=== PATIENT | female | born 1970 | race African-American/Black ===

== ENCOUNTER 2020-09-03 09:58 | Inpatient (IN) | payer OTHER ==
--- NOTE | 2020-09-03 10:03 | BHS.RME ---
Substance Use & Tx History - Substance Use History Alcohol Substance amount: 2 pints rum or lizette Frequency of use: Daily Substance route: Oral Date of Last Use: 09/02/20 (started age 49) Nicotine Substance amount: never smoked Physical/Psych/Mental Status - Behavior General Behavior: Increased activity (restlessness, agitation) Eye Contact: Normal - Cooperativeness Cooperativeness: Cooperative - Thinking Thought Processes: Tight, Logical, Goal Directed - Physical Health Problems Is patient presently having any pain?: No Does patient presently have any injuries (include location): No Does patient currently have a fever: No Is patient : No CIWA Nausea/Vomitin Muscle Tremors: 6 Anxiety: 5 Agitation: 5 Paroxysmal Sweats: 4-Forehead w/Sweat Beads Orientation: 1-Uncertain about Date Tacttile Disturbances: 0-None Auditory Disturbances: 0-None Visual Disturbances: 0-None Headache: 2-Mild CIWA-Ar Total Score: 25
[2020-09-03 10:09] VITALS: BMI 39.4
[2020-09-03] MEDS ORDERED: chlordiazePOXIDE HCL 25 MG CAPSULE ONE (10:27)
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
[2020-09-03] MEDS ORDERED: MENTHOL/PHENOL 1 EACH UD MM PRN (10:35)
[2020-09-03] MEDS ORDERED: BISMUTH SUBSALICYLATE 262 MG/15 ML BTL PO PRN (10:35)
[2020-09-03] MEDS ORDERED: MAGNESIUM HYDROX 2400MG/30ML ORAL SUSPENSION 30 ML CUP PO PRN (10:35)
[2020-09-03] MEDS ORDERED: chlordiazePOXIDE HCL 25 MG CAPSULE PO PRN (10:35)
[2020-09-03] MEDS ORDERED: ONDANSETRON *ODT* 4 MG TABLET SL PRN (10:35)
[2020-09-03] MEDS ORDERED: MAG HYDROX/AL HYDROX/SIMETH 30 ML UNIT-DOSE CUP PO PRN (10:35)
[2020-09-03] MEDS ORDERED: ACETAMINOPHEN 325 MG TABLET (FP) PO PRN ×2 (10:35)
[2020-09-03] MEDS ORDERED: IBUPROFEN 400 MG TABLET (FP) PO PRN (10:35)
[2020-09-03] MEDS ORDERED: MAGNESIUM CITRATE 300 ML BOTTLE PO PRN (10:35)
[2020-09-03] MEDS ORDERED: chlordiazePOXIDE HCL 25 MG CAPSULE PO ONE (10:37)
[2020-09-03] MEDS: chlordiazePOXIDE HCL 25 MG CAPSULE PO SCH ×3 (11:22→22:31)
--- NOTE | 2020-09-03 11:51 | EKG ---
Test Reason : Blood Pressure : / mmHG Vent. Rate : 091 BPM Atrial Rate : 091 BPM P-R Int : 134 ms QRS Dur : 090 ms QT Int : 380 ms P-R-T Axes : 029 080 042 degrees QTc Int : 467 ms NORMAL SINUS RHYTHM T WAVE ABNORMALITY, CONSIDER ANTERIOR ISCHEMIA ABNORMAL ECG NO PREVIOUS ECGS AVAILABLE Confirmed by MD Irvin, Lake ([id number]) on 09/03/2020 11:51:31 AM Referred By: Confirmed By:Lake Bryan MD
[2020-09-03] MEDS ORDERED: PNEUMOC 13-VAL CONJ-DIP CRM/PF 0.5 ML DISP.SYRIN IM ONE (12:00)
[2020-09-03] MEDS ORDERED: hydrOXYzine PAMOATE 25 MG CAPSULE (FP) PO SCH (14:00)
[2020-09-03 14:04] LABS: HEMATOCRIT 28.9 % (32.4-45.2); HEMOGLOBIN 9.1 GM/dL (10.7-15.3); MCH 24.6 pg (25.7-33.7); MCHC 31.4 g/dl (32.0-36.0); MEAN CELL VOLUME 78.2 fl (80-96); PLATELET COUNT 162 K/MM3 (134-434); RDW 20.6 % (11.6-15.6); WHITE BLOOD COUNT 4.3 K/mm3 (4.0-10.0)
[2020-09-03 14:11] LABS: ALBUMIN 3.3 g/dl (3.4-5.0); BILIRUBIN,TOTAL 0.7 mg/dL (0.2-1); BLOOD UREA NITROGEN 6.9 mg/dL (7-18); CALCIUM 8.5 mg/dL (8.5-10.1); CREATININE 0.6 mg/dL (0.55-1.3); POTASSIUM 3.1 mmol/L (3.5-5.1); TOT PROT 7.6 g/dl (6.4-8.2)
[2020-09-03] MEDS: THIAMINE HCL 100 MG TABLET (FP) PO SCH (22:31)
[2020-09-03] MEDS: MELATONIN 5 MG TABLETS PO SCH (22:31)
--- NOTE | 2020-09-04 00:36 | PN ---
S Progress Note Note: kdur 40 meq x2 dose for k of 3.1 repeat cmp on 09/06/2020
[2020-09-04] MEDS: chlordiazePOXIDE HCL 25 MG CAPSULE PO SCH ×4 (06:45→22:17)
[2020-09-04] MEDS: POTASSIUM CHLORIDE TABS 20 MEQ TABLET.ER (FP) PO SCH (10:28)
[2020-09-04] MEDS: PRENATAL VITAMINS W/ FOLIC ACID TABLET (FP) PO SCH (10:28)
--- NOTE | 2020-09-04 13:17 | PN ---
[facility] CIWA - CIWA Score Nausea/Vomitin-No Nausea/No Vomiting Muscle Tremors: 3 Anxiety: 2 Agitation: 3 Paroxysmal Sweats: 3 Orientation: 0-Oriented Tacttile Disturbances: 0-None Auditory Disturbances: 0-None Visual Disturbances: 0-None Headache: 0-None Present CIWA-Ar Total Score: 11 S Progress Note (SOAP) Subjective: sweats shakes interrupted sleep Objective: 09/04/20 13:15 Vital Signs Temperature 98.6 F 09/04/20 08:45 Pulse Rate 100 H 09/04/20 08:45 Respiratory Rate 16 09/04/20 08:45 Blood Pressure 116/63 09/04/20 08:45 O2 Sat by Pulse Oximetry (%) 96 09/04/20 08:45 Laboratory Tests 09/03/20 09/03/20 09/03/20 10:30 10:30 10:30 WBC 4.3 RBC 3.70 Hgb 9.1 L Hct 28.9 L MCV 78.2 L MCH 24.6 L MCHC 31.4 L RDW 20.6 H Plt Count 162 MPV 9.0 Sodium 138 Potassium 3.1 L Chloride 104 Carbon Dioxide 25 Anion Gap 9 BUN 6.9 L Creatinine 0.6 Est GFR (CKD-EPI)AfAm 123.18 Est GFR (CKD-EPI)NonAf 106.28 Random Glucose 94 Calcium 8.5 Total Bilirubin 0.7 AST 63 H ALT 55 Alkaline Phosphatase 128 H Creatine Kinase Troponin I Total Protein 7.6 Albumin 3.3 L Syphilis Serology HIV Ag/Ab Combo Qual Negative 09/03/20 09/03/20 10:30 14:00 WBC RBC Hgb Hct MCV MCH MCHC RDW Plt Count MPV Sodium Potassium Chloride Carbon Dioxide Anion Gap BUN Creatinine Est GFR (CKD-EPI)AfAm Est GFR (CKD-EPI)NonAf Random Glucose Calcium Total Bilirubin AST ALT Alkaline Phosphatase Creatine Kinase 107 Troponin I < 0.02 Total Protein Albumin Syphilis Serology Non-reactive HIV Ag/Ab Combo Qual labs noted low potassium; pt is currently ordered and taking potassium supplement aaox3 ambulating no acute distress Assessment: 09/04/20 13:16 withdrawals Plan: continue detox increase fluids
[2020-09-04] MEDS: MELATONIN 5 MG TABLETS PO SCH (22:18)
[2020-09-04] MEDS: THIAMINE HCL 100 MG TABLET (FP) PO SCH (22:18)
[2020-09-04] MEDS: METHOCARBAMOL 500 MG TABLET PO PRN (22:20)
[2020-09-05] MEDS: hydrOXYzine PAMOATE 25 MG CAPSULE (FP) PO PRN ×2 (01:37→18:25)
[2020-09-05] MEDS: chlordiazePOXIDE HCL 25 MG CAPSULE PO SCH ×4 (06:41→22:07)
[2020-09-05] MEDS: POTASSIUM CHLORIDE TABS 20 MEQ TABLET.ER (FP) PO SCH (10:15)
[2020-09-05] MEDS: PRENATAL VITAMINS W/ FOLIC ACID TABLET (FP) PO SCH (10:15)
[2020-09-05] MEDS ORDERED: PNEUMOCOCCAL 23 VACCINE 0.5 ML VIAL IM ONE (12:00)
[2020-09-05] MEDS ORDERED: PNEUMOC 13-VAL CONJ-DIP CRM/PF 0.5 ML DISP.SYRIN IM ONE (12:00)
--- NOTE | 2020-09-05 13:36 | PN ---
S CIWA - CIWA Score Nausea/Vomitin-No Nausea/No Vomiting Muscle Tremors: 3 Anxiety: 2 Agitation: 2 Paroxysmal Sweats: 2 Orientation: 0-Oriented Tacttile Disturbances: 0-None Auditory Disturbances: 0-None Visual Disturbances: 0-None Headache: 0-None Present CIWA-Ar Total Score: 9 BHS Progress Note (SOAP) Subjective: sweats chills body aches Objective: 09/05/20 13:34 Vital Signs Temperature 96.8 F L 09/05/20 12:40 Pulse Rate 86 09/05/20 12:40 Respiratory Rate 18 09/05/20 12:40 Blood Pressure 97/61 09/05/20 12:40 O2 Sat by Pulse Oximetry (%) 95 09/05/20 12:40 Laboratory Tests 09/03/20 09/03/20 09/03/20 10:30 10:30 10:30 WBC 4.3 RBC 3.70 Hgb 9.1 L Hct 28.9 L MCV 78.2 L MCH 24.6 L MCHC 31.4 L RDW 20.6 H Plt Count 162 MPV 9.0 Sodium 138 Potassium 3.1 L Chloride 104 Carbon Dioxide 25 Anion Gap 9 BUN 6.9 L Creatinine 0.6 Est GFR (CKD-EPI)AfAm 123.18 Est GFR (CKD-EPI)NonAf 106.28 Random Glucose 94 Calcium 8.5 Total Bilirubin 0.7 AST 63 H ALT 55 Alkaline Phosphatase 128 H Creatine Kinase Troponin I Total Protein 7.6 Albumin 3.3 L Syphilis Serology COVID-19 (CARMINE) HIV Ag/Ab Combo Qual Negative 09/03/20 09/03/20 09/03/20 10:30 10:30 14:00 WBC RBC Hgb Hct MCV MCH MCHC RDW Plt Count MPV Sodium Potassium Chloride Carbon Dioxide Anion Gap BUN Creatinine Est GFR (CKD-EPI)AfAm Est GFR (CKD-EPI)NonAf Random Glucose Calcium Total Bilirubin AST ALT Alkaline Phosphatase Creatine Kinase 107 Troponin I < 0.02 Total Protein Albumin Syphilis Serology Non-reactive COVID-19 (CARMINE) Not detected HIV Ag/Ab Combo Qual labs noted aaox3 ambulating no acute distress Assessment: 09/05/20 13:35 withdrawals Plan: continue detox increase fluids kdur 40meq x 3 days iron sulfate 325mg tid
[2020-09-05] MEDS ORDERED: POTASSIUM CHLORIDE TABS 20 MEQ TABLET.ER (FP) PO SCH (14:00)
[2020-09-05] MEDS: FERROUS SO4 325 MG TABLET (FP) PO SCH (18:23)
[2020-09-05] MEDS: THIAMINE HCL 100 MG TABLET (FP) PO SCH (22:07)
[2020-09-05] MEDS: MELATONIN 5 MG TABLETS PO SCH (22:07)
[2020-09-06] MEDS ORDERED: chlordiazePOXIDE HCL 10 MG CAPSULE PO PRN
[2020-09-06] MEDS: hydrOXYzine PAMOATE 25 MG CAPSULE (FP) PO PRN (02:01)
[2020-09-06] MEDS: chlordiazePOXIDE HCL 10 MG CAPSULE PO SCH ×4 (06:25→22:24)
[2020-09-06] MEDS: FERROUS SO4 325 MG TABLET (FP) PO SCH ×3 (07:03→17:48)
[2020-09-06 10:02] LABS: ALBUMIN 2.9 g/dl (3.4-5.0); BILIRUBIN,TOTAL 0.4 mg/dL (0.2-1); BLOOD UREA NITROGEN 7.8 mg/dL (7-18); CALCIUM 8.7 mg/dL (8.5-10.1); CREATININE 0.6 mg/dL (0.55-1.3); POTASSIUM 4.1 mmol/L (3.5-5.1)
[2020-09-06] MEDS: PRENATAL VITAMINS W/ FOLIC ACID TABLET (FP) PO SCH (10:38)
[2020-09-06] MEDS: POTASSIUM CHLORIDE TABS 20 MEQ TABLET.ER (FP) PO SCH (10:39)
--- NOTE | 2020-09-06 13:51 | PN ---
S CIWA - CIWA Score Nausea/Vomitin-No Nausea/No Vomiting Muscle Tremors: 3 Anxiety: 2 Agitation: 2 Paroxysmal Sweats: 1-Minimal Palms Moist Orientation: 0-Oriented Tacttile Disturbances: 0-None Auditory Disturbances: 0-None Visual Disturbances: 0-None Headache: 0-None Present CIWA-Ar Total Score: 8 BHS Progress Note (SOAP) Subjective: sleepy sweats interrupted sleep tired Objective: 09/06/20 13:50 Vital Signs Temperature 97.3 F L 09/06/20 08:57 Pulse Rate 88 09/06/20 08:57 Respiratory Rate 18 09/06/20 08:57 Blood Pressure 121/58 L 09/06/20 08:57 O2 Sat by Pulse Oximetry (%) 98 09/06/20 05:51 Laboratory Tests 09/03/20 09/03/20 09/03/20 10:30 10:30 10:30 WBC 4.3 RBC 3.70 Hgb 9.1 L Hct 28.9 L MCV 78.2 L MCH 24.6 L MCHC 31.4 L RDW 20.6 H Plt Count 162 MPV 9.0 Sodium 138 Potassium 3.1 L Chloride 104 Carbon Dioxide 25 Anion Gap 9 BUN 6.9 L Creatinine 0.6 Est GFR (CKD-EPI)AfAm 123.18 Est GFR (CKD-EPI)NonAf 106.28 Random Glucose 94 Calcium 8.5 Total Bilirubin 0.7 AST 63 H ALT 55 Alkaline Phosphatase 128 H Creatine Kinase Troponin I Total Protein 7.6 Albumin 3.3 L Syphilis Serology COVID-19 (CARMINE) HIV Ag/Ab Combo Qual Negative 09/03/20 09/03/20 09/03/20 10:30 10:30 14:00 WBC RBC Hgb Hct MCV MCH MCHC RDW Plt Count MPV Sodium Potassium Chloride Carbon Dioxide Anion Gap BUN Creatinine Est GFR (CKD-EPI)AfAm Est GFR (CKD-EPI)NonAf Random Glucose Calcium Total Bilirubin AST ALT Alkaline Phosphatase Creatine Kinase 107 Troponin I < 0.02 Total Protein Albumin Syphilis Serology Non-reactive COVID-19 (CARMINE) Not detected HIV Ag/Ab Combo Qual 09/06/20 07:50 WBC RBC Hgb Hct MCV MCH MCHC RDW Plt Count MPV Sodium 143 Potassium 4.1 Chloride 111 H Carbon Dioxide 26 Anion Gap 7 L BUN 7.8 Creatinine 0.6 Est GFR (CKD-EPI)AfAm 123.18 Est GFR (CKD-EPI)NonAf 106.28 Random Glucose 118 H Calcium 8.7 Total Bilirubin 0.4 AST 53 H ALT 56 Alkaline Phosphatase 100 Creatine Kinase Troponin I Total Protein 7.0 Albumin 2.9 L Syphilis Serology COVID-19 (CARMINE) HIV Ag/Ab Combo Qual labs show improvement aaox3 ambulating no acute distress Assessment: 09/06/20 13:51 withdrawals Plan: continue detox
[2020-09-06] MEDS: THIAMINE HCL 100 MG TABLET (FP) PO SCH (22:24)
[2020-09-06] MEDS: MELATONIN 5 MG TABLETS PO SCH (22:24)
[2020-09-07] MEDS: chlordiazePOXIDE HCL 10 MG CAPSULE PO SCH ×2 (05:49→17:23)
[2020-09-07] MEDS: FERROUS SO4 325 MG TABLET (FP) PO SCH ×3 (07:08→17:23)
[2020-09-07] MEDS: POTASSIUM CHLORIDE TABS 20 MEQ TABLET.ER (FP) PO SCH (10:08)
[2020-09-07] MEDS: PRENATAL VITAMINS W/ FOLIC ACID TABLET (FP) PO SCH (10:08)
[2020-09-07] MEDS: hydrOXYzine PAMOATE 25 MG CAPSULE (FP) PO PRN ×2 (12:48→21:46)
--- NOTE | 2020-09-07 19:20 | PN ---
S CIWA - CIWA Score Nausea/Vomitin-No Nausea/No Vomiting Muscle Tremors: None Anxiety: 2 Agitation: 0-Normal Activity Paroxysmal Sweats: No Perspiration Orientation: 0-Oriented Tacttile Disturbances: 1-Very Mild Itch/Numbness Auditory Disturbances: 0-None Visual Disturbances: 2-Mild Sensitivity Headache: 0-None Present CIWA-Ar Total Score: 5 BHS Progress Note (SOAP) Subjective: Poor Appetite, Fatigue. Objective: Patient A & O X 3; In No Acute Distress. 09/07/20 19:20 Vital Signs Temperature 97.8 F 09/07/20 16:45 Pulse Rate 81 09/07/20 16:45 Respiratory Rate 17 09/07/20 16:45 Blood Pressure 138/97 09/07/20 16:45 O2 Sat by Pulse Oximetry (%) 100 09/07/20 16:45 Laboratory Tests 09/03/20 09/03/20 09/03/20 10:30 10:30 10:30 WBC 4.3 RBC 3.70 Hgb 9.1 L Hct 28.9 L MCV 78.2 L MCH 24.6 L MCHC 31.4 L RDW 20.6 H Plt Count 162 MPV 9.0 Sodium 138 Potassium 3.1 L Chloride 104 Carbon Dioxide 25 Anion Gap 9 BUN 6.9 L Creatinine 0.6 Est GFR (CKD-EPI)AfAm 123.18 Est GFR (CKD-EPI)NonAf 106.28 Random Glucose 94 Calcium 8.5 Total Bilirubin 0.7 AST 63 H ALT 55 Alkaline Phosphatase 128 H Creatine Kinase Troponin I Total Protein 7.6 Albumin 3.3 L Syphilis Serology COVID-19 (CARMINE) HIV Ag/Ab Combo Qual Negative 09/03/20 09/03/20 09/03/20 10:30 10:30 14:00 WBC RBC Hgb Hct MCV MCH MCHC RDW Plt Count MPV Sodium Potassium Chloride Carbon Dioxide Anion Gap BUN Creatinine Est GFR (CKD-EPI)AfAm Est GFR (CKD-EPI)NonAf Random Glucose Calcium Total Bilirubin AST ALT Alkaline Phosphatase Creatine Kinase 107 Troponin I < 0.02 Total Protein Albumin Syphilis Serology Non-reactive COVID-19 (CARMINE) Not detected HIV Ag/Ab Combo Qual 09/06/20 07:50 WBC RBC Hgb Hct MCV MCH MCHC RDW Plt Count MPV Sodium 143 Potassium 4.1 Chloride 111 H Carbon Dioxide 26 Anion Gap 7 L BUN 7.8 Creatinine 0.6 Est GFR (CKD-EPI)AfAm 123.18 Est GFR (CKD-EPI)NonAf 106.28 Random Glucose 118 H Calcium 8.7 Total Bilirubin 0.4 AST 53 H ALT 56 Alkaline Phosphatase 100 Creatine Kinase Troponin I Total Protein 7.0 Albumin 2.9 L Syphilis Serology COVID-19 (CARMINE) HIV Ag/Ab Combo Qual Lab results noted. Patient reports history of Anemia, for which she has taken Iron supplementation for treatment. 09/07/20 19:23 Assessment: 09/07/20 19:20 WITHDRAWAL SYMPTOMS. ELEVATED AST LEVEL. ANEMIA. Plan: Continue Detox. Increase Daily Oral Water Intake. Continue Feosol PO for treatment of Anemia. Patient is currently receiving daily MVI containing B Vitamins and Iron while admitted for Detox. Patient scheduled for D/C from detox unit tomorrow pending pre-discharge medical evaluation by covering medical provider, she reports that she will likely go on to Rehab for aftercare.
[2020-09-07] MEDS: THIAMINE HCL 100 MG TABLET (FP) PO SCH (21:46)
[2020-09-07] MEDS: METHOCARBAMOL 500 MG TABLET PO PRN (21:46)
[2020-09-07] MEDS: MELATONIN 5 MG TABLETS PO SCH (21:46)
[2020-09-08] MEDS ORDERED: chlordiazePOXIDE HCL 10 MG CAPSULE PO ONE (05:00)
[2020-09-08] MEDS: hydrOXYzine PAMOATE 25 MG CAPSULE (FP) PO PRN (06:27)
[2020-09-08 06:31] VITALS: BP 132/85; PULSE 71; TEMP 97.1
[2020-09-08] MEDS: FERROUS SO4 325 MG TABLET (FP) PO SCH (07:57)
--- NOTE | 2020-09-08 09:50 | DS ---
[facility] Detox Discharge Summary Admission Date: 09/03/20 Discharge Date: 09/08/20 - History Present History: Alcohol Dependence, Cannabis Dependence Additional Comments: Detox completed without any adverse effects,patient stable for discharge this morning Alert and oriented x3, in no acute respiratory distress. Full ROM, ambulating in unit without any assistance. Encouraged to followup with aftercare. Pertinent Past History: History of gastric bypass surgery, alcohol and marijuana use disorder. - Physical Exam Results Vital Signs: Vital Signs Temperature 97.1 F L 09/08/20 06:30 Pulse Rate 71 09/08/20 06:30 Respiratory Rate 20 09/08/20 06:30 Blood Pressure 132/85 09/08/20 06:30 O2 Sat by Pulse Oximetry (%) 98 09/08/20 06:30 Vital Signs 09/08/20 06:30 Temperature 97.1 F L Pulse Rate 71 Respiratory 20 Rate Blood Pressure 132/85 O2 Sat by Pulse 98 Oximetry (%) Laboratory Last Values WBC 4.3 K/mm3 (4.0-10.0) 09/03/20 10:30 RBC 3.70 M/mm3 (3.60-5.2) 09/03/20 10:30 Hgb 9.1 GM/dL (10.7-15.3) L 09/03/20 10:30 Hct 28.9 % (32.4-45.2) L 09/03/20 10:30 MCV 78.2 fl (80-96) L 09/03/20 10:30 MCH 24.6 pg (25.7-33.7) L 09/03/20 10:30 MCHC 31.4 g/dl (32.0-36.0) L 09/03/20 10:30 RDW 20.6 % (11.6-15.6) H 09/03/20 10:30 Plt Count 162 K/MM3 (134-434) 09/03/20 10:30 MPV 9.0 fl (7.5-11.1) 09/03/20 10:30 Sodium 143 mmol/L (136-145) 09/06/20 07:50 Potassium 4.1 mmol/L (3.5-5.1) 09/06/20 07:50 Chloride 111 mmol/L (98-107) H 09/06/20 07:50 Carbon Dioxide 26 mmol/L (21-32) 09/06/20 07:50 Anion Gap 7 MMOL/L (8-16) L 09/06/20 07:50 BUN 7.8 mg/dL (7-18) 09/06/20 07:50 Creatinine 0.6 mg/dL (0.55-1.3) 09/06/20 07:50 Est GFR (CKD-EPI)AfAm 123.18 09/06/20 07:50 Est GFR (CKD-EPI)NonAf 106.28 09/06/20 07:50 Random Glucose 118 mg/dL (74-106) H 09/06/20 07:50 Calcium 8.7 mg/dL (8.5-10.1) 09/06/20 07:50 Total Bilirubin 0.4 mg/dL (0.2-1) 09/06/20 07:50 AST 53 U/L (15-37) H 09/06/20 07:50 ALT 56 U/L (13-61) 09/06/20 07:50 Alkaline Phosphatase 100 U/L (45-117) 09/06/20 07:50 Creatine Kinase 107 U/L (26-192) 09/03/20 14:00 Troponin I < 0.02 ng/ml (0.00-0.05) 09/03/20 14:00 Total Protein 7.0 g/dl (6.4-8.2) 09/06/20 07:50 Albumin 2.9 g/dl (3.4-5.0) L 09/06/20 07:50 Syphilis Serology Non-reactive (NONREACTIVE) 09/03/20 10:30 COVID-19 (CARMINE) Not detected (Not Detected) 09/03/20 10:30 HIV Ag/Ab Combo Qual Negative (NEGATIVE) 09/03/20 10:30 Labs noted. Pertinent Admission Physical Exam Findings: Withdrawal symptoms. - Treatment Hospital Course: Detox Protocol Followed, Detoxed Safely, Responded well, Di scharged Condition Good - Medication Discharge Medications: Ambulatory Orders NK [No Known Home Medication] 09/03/20 - Diagnosis (1) Alcohol abuse with withdrawal, uncomplicated Status: Acute (2) Anemia Status: Chronic (3) History of gastric bypass Status: Chronic - AMA Did Patient Leave Against Medical Advice: No
== END 2020-09-08 08:56 | disposition home or self-care (01) | DRG 775 ==
LOC: YASAS 09:58 → Y6N 10:18
PROVIDERS: ADMIT Allergy & Immunology; ATTEND Allergy & Immunology
PROC: HZ2ZZZZ Detoxification Services for Substance Abuse Treatment (ICD-10-PCS; principal; 2020-09-03)
DX: F10.230 Alcohol dependence with withdrawal, uncomplicated (principal); F12.20 Cannabis dependence, uncomplicated; D64.9 Anemia, unspecified; R74.01 Elevation of levels of liver transaminase levels; Z98.84 Bariatric surgery status
CPT/HCPCS: 36415; 80053; 82550; 84484; 85027; 86780; 87389; 90732; 93005; 93010; C9803; G0009; Q0162; U0003